=== PATIENT | female | born 1965 | race Caucasian/White ===

== ENCOUNTER → 2016-09-28 | Outpatient (CLI) | payer SELFPAY ==
[~2016-09-28] MED LIST: CIPROFLOXACIN500 M1 PO; CLONIDINE HCL0.1 MG PO; DULCOLAX10 MG PR; ENDOCET 5-3251 EACH PO; FLOMAX0.4 MG PO; HYDROCHLOROTHIA25 MG PO; NORCO 5/3251 TABLET PO; ONDANSETRON HCL4 MG PO; SYNTHROID100 MCG PO; TOPROL XL50 MG PO; TORADOL10 MG PO
== END | disposition home or self-care (01) ==
LOC: RAD 15:24
DX: M79.671 Pain in right foot (principal)
CPT/HCPCS: 73630

== ENCOUNTER → 2016-10-07 | Outpatient (CLI) | payer SELFPAY | END | disposition home or self-care (01) | LOC: RAD 09:04 | DX: R31.9 Hematuria, unspecified (principal); Z87.442 Personal history of urinary calculi; M54.5 Low back pain; R29.898 Other symptoms and signs involving the musculoskeletal system; M51.9 Unspecified thoracic, thoracolumbar and lumbosacral intervertebral disc disorder | CPT/HCPCS: 72100; 74176 ==

== ENCOUNTER 2017-08-01 14:59 | Emergency (ER) | payer OTHER ==
[~2017-08-01] VITALS: Ht 162.6 cm; Wt 105.6 kg
[2017-08-01 15:36] LABS: HEMATOCRIT 39.3 % (36.0-46.0); HEMOGLOBIN 13.5 G/DL (11.9-15.5); MCH 31.4 PG (29.0-34.0); MCHC 34.4 G/DL (30.0-36.0); MCV 91.4 FL (83-99); PLATELET COUNT 273 K/uL (156-360); RBC DIS.WIDTH-CV 12.7 % (11.8-14.6); RBC DIS.WIDTH-SD 41.7 % (39-53); WHITE BLOOD COUNT 6.4 K/uL (4.1-10.2)
[2017-08-01 15:47] LABS: APPEARANCE CLEAR ((CLEAR)); BILIRUBIN NEGATIVE; BLOOD SMALL; COLOR YELLOW ((YELLOW)); GLUCOSE (STRIP) NEGATIVE; KETONES NEGATIVE; LEUKOCYTES NEGATIVE; NITRITE NEGATIVE; PROTEIN (STRIP) NEGATIVE; SPECIFIC GRAVITY 1.023 (1.000-1.030); UROBILINOGEN 0.2 MG/DL (0.2-1.0)
[2017-08-01 15:51] LABS: BACTERIA RARE /HPF; EPITHELIAL CELLS RARE /HPF; MUCUS TRACE /LPF; RED BLOOD CELLS 0-5 /HPF (0-5); UCUL ADDED? NO; WHITE BLOOD CELLS 0-5 /HPF (0-5)
[2017-08-01 15:52] LABS: CHLORIDE 99 mEq/L (99-109); POTASSIUM 4.3 mEq/L (3.7-5.4); SODIUM 139 mEq/L (136-147)
[2017-08-01 15:54] LABS: GLUCOSE 100 mg/dL (70-99)
[2017-08-01 15:58] LABS: CREATININE 0.9 mg/dL (0.6-1.3); GFR ESTIMATE (CALCULATED) > 59 mL/min/
[2017-08-01 15:59] LABS: UREA NITROGEN (BUN) 15 mg/dL (9-23)
[2017-08-01] MEDS ORDERED: PROCTOFOAM-HC10 GM PR (17:28)
[2017-08-01] MEDS ORDERED: ORAL PAIN RELI9.4 GM PO (17:28)
[2017-08-01 18:29] VITALS: BP 161/93
== END 2017-08-01 18:29 | disposition home or self-care (01) ==
LOC: EME 14:59
PROC: 069Y3ZZ Drainage of Lower Vein, Percutaneous Approach (ICD-10-PCS; principal; 2017-08-01)
DX: K64.5 Perianal venous thrombosis (principal); E03.9 Hypothyroidism, unspecified; I10 Essential (primary) hypertension; F32.9 Major depressive disorder, single episode, unspecified; K21.9 Gastro-esophageal reflux disease without esophagitis; F41.9 Anxiety disorder, unspecified
CPT/HCPCS: 80048; 81003; 85027; 99281; 99284